=== PATIENT | female | born 1955 ===

== ENCOUNTER 2018-05-08 08:55 | Emergency (ER) | payer OTHER ==
[~2018-05-08] VITALS: Ht 157.5 cm; Wt 56.7 kg
[2018-05-08] MEDS ORDERED: DESVENLAFAXINE50 M1 (09:05)
[2018-05-08] MEDS ORDERED: AMITRIPTYLINE H10 MG (09:06)
[2018-05-08] MEDS ORDERED: CLONAZEPAM1 MG (09:06)
[2018-05-08] MEDS ORDERED: TELMISARTAN40 MG (09:07)
[2018-05-08] MEDS ORDERED: FEROSUL300 MG/6.8 (09:07)
[2018-05-08] MEDS ORDERED: CORAL CALCIUM1 GM (09:08)
== END 2018-05-08 13:11 | disposition home or self-care (01) ==
LOC: ER 08:55
DX: K29.70 Gastritis, unspecified, without bleeding (principal); R55 Syncope and collapse